=== PATIENT | male | born 1955 | race Hispanic/Latino ===

== ENCOUNTER 2018-03-31 18:03 | Observation (INO) | payer BC ==
[~2018-03-31] VITALS: Ht 170.2 cm; Wt 78.5 kg
[~2018-03-31 18:03] MED LIST: AVODART0.5 MG PO; OMEPRAZOLE40 MG PO; TAMSULOSIN HCL0.4 MG PO
--- OUTSIDE RECORDS SUMMARY | 2018-03-31 18:06 | XMS REPORT ---
Author Author [facility] Address Unknown Phone Unavailable Care Team Providers Care Inventory Control Specialist Name Role Phone Unavailable Unavailable Payers Payer Name Policy Type Policy Number Effective Date Expiration Date Problems This patient has no known problems. Allergies, Adverse Reactions, Alerts Allergy Name Allergy Type Status Severity Reaction(s) Onset Date Inactive Date Treating Clinician Comments No Known Allergies DA Active U 2017-08-16 00:00:00 Medications This patient has no known medications.
--- OUTSIDE RECORDS SUMMARY | 2018-03-31 18:06 | XMS REPORT | Encounter Summary ---
Author Organization Unknown Address [address] [place] [id number] Phone [phone] Care Team Providers Care Help Desk Technician Name Role Phone Dr. Vicki Wong 3 [phone] Vish Silva MD 107 [phone] Chantel Christina MD 111 [phone] Liborio Rutherford MD 115 [phone] Reason for Visit Pure hypercholesterolemia Instructions 1. Pure hypercholesterolemia high cholesterol: care instructions 2. Immunization 3. Body mass index 25-29 - overweight learning about healthy weight 4. Arthropathy of lumbar facet joint Discussion Note: None recorded. Plan of Care Reminders Provider Appointments Est Patient 10/02/2018 8:00AM Casey Quiros MD Lab None recorded. Referral None recorded. Procedures None recorded. Surgeries None recorded. Imaging None recorded. Medications Name Start Date aspirin 81 mg tablet,delayed release QD clopidogrel 75 mg tablet Take 1 tablet every day by oral route for 90 days. dutasteride 0.5 mg capsule Take 1 capsule every day by oral route. omeprazole 40 mg capsule,delayed release Take 1 capsule every day by oral route. rosuvastatin 40 mg tablet Take 1 tablet every day by oral route as directed for 30 days. tamsulosin 0.4 mg capsule Take 1 capsule every day by oral route. Medications Administered None recorded. Vitals Height Weight BMI Blood Pressure 5 ft 7 in 178.8 lbs 28 kg/m2 102/70 mm[Hg] Lab Results None recorded. Allergies Code Code System Name Reaction Severity Status Onset NKDA Problems Name Status Onset Date Source Pure Hypercholesterolemia Active 11/13/2015 Body Mass Index 25-29 - Overweight Active 11/13/2015 High Hemoglobin a1C Level Active 11/13/2015 Mixed Hyperlipidemia Active 01/29/2016 Bilateral Cataracts Active 03/30/2016 History of Coronary Artery Bypass Grafting Active 09/23/2017 Procedures Date Name Performed by 02/28/2017 Cardiac Surgery Information not available 02/28/2015 Eye Surgery Information not available 08/06/2014 Colonoscopy Information not available Cataract Surgery Complex Information not available Skin Splt Grft Trnk/arm/leg Information not available Appendectomy Information not available Vaccine List None recorded. Social History Smoking Status Never Smoker Past Encounters 03/31/2018 Pure Hypercholesterolemia; Immunization; Body Mass Index 25-29 - Overweight; Arthropathy of Lumbar Facet Joint Casey Quiros MD: [address] [place] [address], Ph. History of Present Illness Note:F/u on HLD. Rosuvastatin was increased to 40 mgs daily 3 months ago. Compliant with meds. Non compliant with diet or exercise. No side effects with meds. No new concerns. Review of Systems Comprehensive General Adult ROS Reported By: Patient Constitutional: Constitutional: no fever Eyes: Eyes: no vision change Cardiovascular: Cardiovascular: no chest pain, no palpitations, no lightheadedness Respiratory: Respiratory: no cough, no wheezing, no shortness of breath Gastrointestinal: Gastrointestinal: no abdominal pain, no nausea, no vomiting, no constipation, no diarrhea Musculoskeletal: Musculoskeletal: no muscle aches, no swelling in the extremities Neurologic: Neurologic: no loss of consciousness, no headaches Psychiatric: Psych: no depression, no alcohol abuse, no anxiety, no suicidal thoughts Physical Exam General Adult Exam (male) Reported By: Patient Constitutional: General Appearance: healthy-appearing. Level of Distress: NAD. Ambulation: ambulating normally Psychiatric: Insight: good judgement. Mental Status: active and alert, normal mood, normal affect. Orientation: to time, to place, to person. Memory: recent memory normal, remote memory normal Eyes: Lids and Conjunctivae: non-injected, no discharge Neck: Neck: supple, trachea midline Lungs: Auscultation: breath sounds normal Cardiovascular: Heart Auscultation: RRR, normal S1, normal S2, no murmurs Abdomen: Inspection and Palpation: soft, non-distended, no tenderness, no guarding Musculoskeletal:: Motor Strength and Tone: normal, normal tone. Joints, Bones, and Muscles: normal movement of all extremities. Extremities: no edema Neurologic: Gait and Station: normal gait
[2018-03-31 18:47] LABS: BASOPHILS # (AUTO) 0.1 (0.0-0.1); BASOPHILS % 0.8 % (0.0-1.0); EOSINOPHILS # (AUTO) 0.2 (0.0-0.4); EOSINOPHILS % 2.9 % (0.0-6.0); HEMATOCRIT 41.5 % (38.2-49.6); HEMOGLOBIN 13.6 g/dL (14.0-18.0); LYMPHOCYTES # (AUTO) 2.3 (1.0-3.2); LYMPHOCYTES % 35.8 % (18.0-39.1); MEAN CORPUSCULAR HEMOGLOBIN 26.4 pg (28-32); MEAN CORPUSCULAR HGB CONC 32.8 g/dL (31-35); MEAN CORPUSCULAR VOLUME 80.6 fL (81-99); MONOCYTES # (AUTO) 0.8 (0.2-0.8); MONOCYTES % 12.3 % (4.4-11.3); NEUTROPHILS # (AUTO) 3.1 (2.1-6.9); PLATELET COUNT 248 x10e3/uL (140-360); RED BLOOD COUNT 5.15 x10e6/uL (4.3-5.7); RED CELL DISTRIBUTION WIDTH 13.4 % (11.7-14.4)
[2018-03-31 19:01] LABS: INR 0.91; PROTHROMBIN TIME 13.1 seconds (11.9-14.5)
--- NOTE | 2018-03-31 19:04 | Diagnostic Imaging Report ---
EXAM: XR CHEST 1 VIEW DATE: 03/31/2018 6:48 PM INDICATION: Lightheaded COMPARISON: None FINDINGS: Lines and Tubes: None Heart and Mediastinum: Upper limits of normal. Sternotomy wires. Lungs and Pleura: Minimal opacities in the lung bases statistically represent atelectasis, however, infectious process could have a similar appearance. Bones and Soft Tissues: No acute findings. IMPRESSION: 1. No acute cardiopulmonary findings. Signed by: Dr. Juan A Kumar MD on 03/31/2018 7:00 PM
[2018-03-31 19:11] LABS: ALANINE AMINOTRANSFERASE 11 IU/L (0-55); ALBUMIN/GLOBULIN RATIO 1.3 (0.8-2.0); ALKALINE PHOSPHATASE 86 IU/L (40-150); ANION GAP 14.8 mmol/L (8-16); BLOOD UREA NITROGEN 22 mg/dL (7-26); BUN/CREATININE RATIO 17 (6-25); CALCIUM 9.4 mg/dL (8.4-10.2); CARBON DIOXIDE 24 mmol/L (22-29); CHLORIDE 104 mmol/L (98-107); CREATINE KINASE 121 IU/L (30-200); CREATININE, SERUM 1.33 mg/dL (0.72-1.25); EST GLOMERULAR FILTRATION RATE 54 ML/MIN (60-); GLUCOSE 98 mg/dL (74-118); POTASSIUM 3.8 mmol/L (3.5-5.1); SODIUM 139 mmol/L (136-145)
--- NOTE | 2018-03-31 19:57 | Diagnostic Imaging Report ---
EXAMINATION: Head CT without contrast. HISTORY:Dizziness and sweating. COMPARISON:Report of CT brain from 01/27/2016, images are not available for comparison at the time of interpretation. TECHNIQUE: Multidetector axial images were obtained from the foramen magnum to the vertex without contrast. The images were reconstructed using brain and bone algorithms. Thin section brain images were reformatted into coronal and sagittal planes. Dose modulation, iterative reconstruction, and/or weight based adjustment of the mA/kV was utilized to reduce the radiation dose to as low as reasonably achievable. Intravenous contrast: None IMAGE QUALITY: Acceptable. FINDINGS: Skull/scalp: No lytic or blastic. lesions. No surgical changes. Parenchyma: Focal hypodensity in the inferior aspect of left lentiform nucleus represents old lacunar infarct versus prominent perivascular space. No acute hemorrhage, mass or acute major vascular territorial infarct. Arteries: No density suggestive of thrombosis. Dural sinuses: No abnormal density suggestive of thrombosis. Ventricles: No hydrocephalus or displacement. Extra-axial spaces: No abnormal density. Brain volume: Normal for age. Craniocervical junction: No mass, Chiari malformation, or basilar invagination. Sella: No mass. Paranasal/mastoid sinuses: Imaged portions unremarkable. IMPRESSION: 1. No acute intracranial abnormality, particularly no acute hemorrhage, mass or acute major vascular territorial infarct. 2. Old lacunar infarct vs prominent perivascular space in left putamen. Signed by: Dr. Faith Grady M.D. on 03/31/2018 7:54 PM
[2018-03-31] MEDS ORDERED: SODIUM CHLORIDE FLUSH 10 ML SYR INJ PRN (20:15)
[2018-03-31] MEDS ORDERED: NITROGLYCERIN 0.4 MG SUBL SL PRN (20:15)
[2018-03-31] MEDS ORDERED: ONDANSETRON HCL INJ 2MG/ML 2ML 2 MG/ML VIAL IV PRN (20:15)
[2018-03-31] MEDS ORDERED: ASPIRIN 81 MG CHEW TAB PO ONE (20:15)
[2018-03-31 21:30] VITALS: BP 137/76
[2018-03-31 22:00] VITALS: BP 137/76
--- NOTE | 2018-03-31 22:08 | NUR ---
PATIENT RECEIVED FROM EMERGENCY DEPARTMENT PER STRETCHER AT 2122; HE'S ALERT AND ORIENTED X4, NO RESPIRATORY DISTRESS OBSERVED AND HE DENIES CHEST PAIN AND DIZZINESS. SKIN INTEGRITY INTACT, SMALL DARK AREAS OBSERVED TO THE STERNUM, PATIENT STATED HE HAD CABG JULY OF 2017 AT [facility]. HE'S ORIENTED TO SURROUNDINGS, CALL LIGHT WITHIN EASY REACH, INSTRUCTED TO CALL FOR ASSISTANCE UPON GETTING OUT OF THE BED.
[2018-03-31] MEDS: FAMOTIDINE 20 MG TAB PO SCH (22:40)
[2018-04-01 01:00] VITALS: BP 114/68
--- NOTE | 2018-04-01 02:50 | NUR ---
PATIENT IS ASLEEP, HE'S EASY TO AROUSE. NO RESPIRATORY DISTRESS OBSERVED, HE DENIES CHEST PAIN. CALL LIGHT WITHIN EASY REACH, BED ALARM ON, INSTRUCTED TO CALL FOR ASSISTANCE NEEDED.
[2018-04-01 04:25] VITALS: BP 121/75
[2018-04-01 06:10] LABS: CREATINE KINASE 111 IU/L (30-200)
--- NOTE | 2018-04-01 06:10 | NUR ---
PATIENT ASSISTED TO THE RESTROOM, CONDITION REMAINS STABLE AND HE DENIES CHEST PAIN AND DIZZINESS. HE'S NOW BACK IN BED WITHOUT ACUTE DISTRESS, CALL LIGHT WITHIN EASY REACH.
[2018-04-01 06:26] LABS: CHOL/HDL RATIO 2.9 (3.9-4.7)
--- NOTE | 2018-04-01 07:35 | NUR ---
patient resting in bed, AAOx3, Denies any chest PAIN or SOB this time, not in any distress, call light in reach, encouraged to call for any assistance
[2018-04-01 07:47] VITALS: BP 127/73
[2018-04-01] MEDS: FAMOTIDINE 20 MG TAB PO SCH (08:42)
[2018-04-01] MEDS ORDERED: ASPIRIN 81 MG ENTERIC COATED PO SCH (09:00)
[2018-04-01 11:03] VITALS: BP 127/73
[2018-04-01 11:55] VITALS: BP 129/75
[2018-04-01 12:24] LABS: CREATINE KINASE 128 IU/L (30-200)
[2018-04-01] MEDS ORDERED: CRESTOR10 MG PO ×2 (13:54→14:40)
[2018-04-01] MEDS ORDERED: PLAVIX75 MG PO ×2 (13:54→14:39)
--- NOTE | 2018-04-01 14:10 | NUR ---
Dr Lopez had rounds , said patient can go home.
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
--- NOTE | 2018-04-01 15:19 | NUR ---
patient discharged home. Alert with no distress, denies any chest pain, no distress noted, IV canula removed with tip intact, Tele box returned, at bed side, transported via [facility] to [facility]
--- NOTE | 2018-04-02 20:27 | Discharge Summary ---
DISCHARGE DIAGNOSES 1. Coronary artery disease with unstable angina. 2. Status post coronary artery bypass surgery. 3. Near syncope. 4. Dizziness. 5. Hypercholesterolemia. DISCHARGE INSTRUCTIONS: Continuation of home medication. 1. Aspirin 81 mg a day. 2. Plavix 75 mg a day. 3. Crestor 20 mg a day. 4. Flomax 0.4 mg a day. 5. Stop dutasteride 0.5 mg a day. 6. Patient has not given beta taylor because of bradycardia. HISTORY AND PHYSICAL: Please refer to the dictated note. COURSE IN THE HOSPITAL: Patient came to this institution from the emergency room. He was ruled out for myocardial infarction. Because of his presentation, his symptoms coronary artery disease. He is offered a cardiac catheterization. However, patient said "I live nearby the hospital, I preferred to go home and I will schedule my procedure as an outpatient." Patient advised in case of any more symptoms present again to the emergency room. OPAL BENNETT MD Job#: [id number] JASKARAN
== END 2018-04-01 15:04 | disposition home or self-care (01) ==
LOC: ER 18:03 → ERHOLD 20:22 → INTOOBSV 20:22 → IMCU 21:28
PROVIDERS: ADMIT Internal Medicine Cardiovascular Disease; ATTEND Internal Medicine Cardiovascular Disease
DX: I25.110 Atherosclerotic heart disease of native coronary artery with unstable angina pectoris (principal); R55 Syncope and collapse; E78.00 Pure hypercholesterolemia, unspecified; Z95.1 Presence of aortocoronary bypass graft; Z83.3 Family history of diabetes mellitus; Z82.49 Family history of ischemic heart disease and other diseases of the circulatory system; Z79.82 Long term (current) use of aspirin
CPT/HCPCS: 36415 ×2; 70450; 71045; 80053; 80061; 82550 ×2; 82553 ×2; 84484 ×2; 85025; 85610; 85730; 93005; 99284; G0378 ×2

== ENCOUNTER 2018-07-11 14:46 | Observation (INO) | payer BC ==
[~2018-07-11] VITALS: Ht 170.2 cm; Wt 82.3 kg
[~2018-07-11 14:46] MED LIST changes: +CRESTOR10 MG PO; +PLAVIX75 MG PO
[2018-07-11 16:09] LABS: BASOPHILS % 0.3 % (0.0-1.0); EOSINOPHILS # (AUTO) 0.1 (0.0-0.4); EOSINOPHILS % 0.8 % (0.0-6.0); HEMATOCRIT 43.2 % (38.2-49.6); HEMOGLOBIN 13.9 g/dL (14.0-18.0); LYMPHOCYTES # (AUTO) 1.3 (1.0-3.2); LYMPHOCYTES % 13.2 % (18.0-39.1); MEAN CORPUSCULAR HEMOGLOBIN 26.7 pg (28-32); MEAN CORPUSCULAR HGB CONC 32.2 g/dL (31-35); MEAN CORPUSCULAR VOLUME 83.1 fL (81-99); MONOCYTES # (AUTO) 0.9 (0.2-0.8); MONOCYTES % 9.9 % (4.4-11.3); NEUTROPHILS # (AUTO) 7.2 (2.1-6.9); NEUTROPHILS % 75.4 % (38.7-80.0); PLATELET COUNT 235 x10e3/uL (140-360); RED CELL DISTRIBUTION WIDTH 13.2 % (11.7-14.4)
--- NOTE | 2018-07-11 16:12 | Diagnostic Imaging Report ---
EXAM: CHEST SINGLE (NOT PORTABLE) DATE: 07/11/2018 3:26 PM INDICATION: ^CHEST PAIN ^Y COMPARISON: Chest x-ray, 03/31/2018 FINDINGS: Lines and tubes: None The heart is upper limits of normal in size, stable from last exam. Wire sternotomy sutures are again noted. No focal pulmonary opacity, pleural effusion or pneumothorax. Upper abdomen unremarkable. No acute bony abnormality. IMPRESSION: No evidence for acute disease. Signed by: Dr. Gerber Carter M.D. on 07/11/2018 4:08 PM
[2018-07-11] MEDS ORDERED: ASPIRIN 81 MG CHEW TAB PO ONE (16:15)
[2018-07-11 16:16] LABS: BILIRUBIN,URINE NEGATIVE (NEGATIVE); CLARITY,URINE SL CLOUDY (CLEAR); COLOR,URINE YELLOW (YELLOW); KETONES,URINE NEGATIVE (NEGATIVE); LEUKOCYTE ESTERASE ,URINE NEGATIVE (NEGATIVE); NITRITE,URINE NEGATIVE (NEGATIVE); PROTEIN,URINE DIPSTICK NEGATIVE (NEGATIVE); URINE UROBILINOGEN 0.2 mg/dL (0.2 - 1)
[2018-07-11] MEDS ORDERED: ASPIRIN 81 MG CHEW TAB ONE (16:18)
[2018-07-11 16:20] LABS: INR 0.92; PROTHROMBIN TIME 12.8 seconds (11.9-14.5)
[2018-07-11 16:22] LABS: PARTIAL THROMBOPLASTIN TIME 27.1 seconds (23.8-35.5)
[2018-07-11 16:27] LABS: MUCUS,URINE RARE (RARE)
[2018-07-11 16:33] LABS: ALANINE AMINOTRANSFERASE 14 IU/L (0-55); ALBUMIN/GLOBULIN RATIO 1.2 (0.8-2.0); ALKALINE PHOSPHATASE 92 IU/L (40-150); ANION GAP 12.7 mmol/L (8-16); BLOOD UREA NITROGEN 17 mg/dL (7-26); BUN/CREATININE RATIO 16 (6-25); CALCIUM 9.6 mg/dL (8.4-10.2); CARBON DIOXIDE 24 mmol/L (22-29); CHLORIDE 104 mmol/L (98-107); CREATINE KINASE 102 IU/L (30-200); CREATININE, SERUM 1.09 mg/dL (0.72-1.25); EST GLOMERULAR FILTRATION RATE > 60 ML/MIN (60-); GLUCOSE 77 mg/dL (74-118); POTASSIUM 3.7 mmol/L (3.5-5.1); SODIUM 137 mmol/L (136-145)
--- NOTE | 2018-07-11 19:00 | NUR ---
received report from ny boswell
[2018-07-11] MEDS ORDERED: NITROGLYCERIN 0.4 MG SUBL SL PRN (19:45)
[2018-07-11] MEDS ORDERED: MORPHINE SULFATE 2 MG/ML SYR 1ML IV PRN (19:45)
[2018-07-11] MEDS ORDERED: ONDANSETRON HCL INJ 2MG/ML 2ML 2 MG/ML VIAL IV PRN (19:45)
[2018-07-11] MEDS ORDERED: MORPHINE SULFATE INJ 4 MG/ML INJ 1ML IV PRN (20:00)
[2018-07-11] MEDS: FAMOTIDINE 20 MG/2 ML VIAL IV SCH (20:40)
[2018-07-11] MEDS ORDERED: ASPIR 8181 MG PO (22:29)
[2018-07-11] MEDS ORDERED: AVODART0.5 MG PO (22:29)
[2018-07-11 22:40] VITALS: BP 144/75
--- NOTE | 2018-07-11 22:40 | NUR ---
Patient arrived to unit via stretcher from ER. A&Ox3. Patient ambulated from stretcher to bed. Oriented to call light and environment. Instructed to call for assistance or on the onset of pain or SOB. Call light within reach.
[2018-07-11 23:03] VITALS: BP 144/75
[2018-07-12] VITALS (8 sets, daily range): BP systolic 117–132; BP diastolic 62–78
[2018-07-12 00:19] LABS: CREATINE KINASE MB 1.3 ng/mL (0-5.0)
[2018-07-12 05:59] LABS: BASOPHILS # (AUTO) 0.1 (0.0-0.1); BASOPHILS % 0.8 % (0.0-1.0); EOSINOPHILS # (AUTO) 0.2 (0.0-0.4); HEMOGLOBIN 13.5 g/dL (14.0-18.0); LYMPHOCYTES % 32.2 % (18.0-39.1); MEAN CORPUSCULAR HEMOGLOBIN 26.8 pg (28-32); MEAN CORPUSCULAR HGB CONC 32.9 g/dL (31-35); MEAN CORPUSCULAR VOLUME 81.5 fL (81-99); MONOCYTES # (AUTO) 0.7 (0.2-0.8); MONOCYTES % 10.7 % (4.4-11.3); NEUTROPHILS # (AUTO) 3.4 (2.1-6.9); PLATELET COUNT 223 x10e3/uL (140-360); RED BLOOD COUNT 5.03 x10e6/uL (4.3-5.7); RED CELL DISTRIBUTION WIDTH 13.2 % (11.7-14.4)
[2018-07-12 06:40] LABS: CREATINE KINASE 93 IU/L (30-200)
[2018-07-12 06:42] LABS: ALANINE AMINOTRANSFERASE 14 IU/L (0-55); ALBUMIN 3.4 g/dL (3.5-5.0); ALKALINE PHOSPHATASE 79 IU/L (40-150); ANION GAP 12.2 mmol/L (8-16); BLOOD UREA NITROGEN 15 mg/dL (7-26); BUN/CREATININE RATIO 16 (6-25); CALCIUM 9.1 mg/dL (8.4-10.2); CARBON DIOXIDE 23 mmol/L (22-29); CHLORIDE 109 mmol/L (98-107); CHOLESTEROL 149 MD/DL (0-199); CREATININE, SERUM 0.95 mg/dL (0.72-1.25); EST GLOMERULAR FILTRATION RATE > 60 ML/MIN (60-); GLUCOSE 104 mg/dL (74-118); HDL CHOLESTEROL 49 MG/DL (40-60); LDL CHOLESTEROL 81 MG/DL (60-130); POTASSIUM 4.2 mmol/L (3.5-5.1); SODIUM 140 mmol/L (136-145); TRIGLYCERIDES 97 MG/DL (0-149)
--- NOTE | 2018-07-12 06:42 | NUR ---
Spoke with Dr Lopez: notified of consult for chest pain. Will see patient.
[2018-07-12] MEDS ORDERED: ASPIRIN 81 MG ENTERIC COATED PO SCH (09:00)
[2018-07-12] MEDS: FAMOTIDINE 20 MG/2 ML VIAL IV SCH ×2 (09:06→20:57)
[2018-07-12] MEDS ORDERED: LIDOCAINE 1% W/EPINEPHRINE 20 ML VIAL ONE (13:16)
[2018-07-12] MEDS ORDERED: CEFAZOLIN SOD 1 GM VIAL ONE (13:17)
[2018-07-12] MEDS ORDERED: SODIUM CHLORIDE 0.9% 50ML 50 ML ONE (13:17)
--- NOTE | 2018-07-12 13:47 | NUR ---
1320-consent for Implanted Loop Recorder obtained by labor crew supervisor staff Ancef 1gram infusing as ordered by Dr. Candis Lopez 1335-Dr. Candis Lopez arrived 1336-Lidocaine with epi to sight by Dr. Candis Lopez 1340-Loop recorder inserted 1342-dressing applied
[2018-07-12] MEDS ORDERED: CEFAZOLIN SOD 1 GM/NS 50ML 50 ML IV ONE (14:00)
[2018-07-12 15:28] LABS: CREATINE KINASE MB 1.1 ng/mL (0-5.0)
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
--- NOTE | 2018-07-12 19:38 | NUR ---
Got report from previous nurse. call light within reach. Patient in bed. A&O x 3. No pain or distress.
[2018-07-12] MEDS ORDERED: ATORVASTATIN 20 MG TAB PO SCH (21:00)
[2018-07-12] MEDS ORDERED: CRESTOR 10MG PO SCH ×2 (21:00)
[2018-07-12] MEDS: MINOCYCLINE HCL 50 MG CAP PO SCH (21:05)
--- NOTE | 2018-07-12 21:25 | Operative Report ---
DATE OF PROCEDURE: 07/12/2018 SURGEON: Deejay Lopez MD PROCEDURE PERFORMED: Implantable loop recorder implant. INDICATION FOR PROCEDURE: Recurrent syncopal and near syncopal spells of unclear etiology, this is for monitoring for any significant arrhythmias. TECHNICAL DETAIL: After risks, benefits, pros and cons to this procedure were explained, the patient agreed to proceed. The patient was prepped and draped in the usual sterile fashion in the 4th to 5th left parasternal intercostal space. A 1% lidocaine solution with epinephrine was given through the skin and utilizing a [employer] Confirm Rx device, the blade was utilized to make a stab incision. Next, we utilized the injection system to inject the loop recorder in the left parasternal space. The direction of the injection was a 45-degree angle toward apex. Finally, this manual compression was applied achieving hemostasis and the edges of the wound were reapproximated with Dermabond crystalline solution. COMPLICATIONS: None. ESTIMATED BLOOD LOSS: Minimal. PROCEDURE SUMMARY: Successful implantation of a confirmed Rx [employer] implantable loop recorder. GTIN is [id number], reference number is [id number], SN is [id number]. PLAN/RECOMMENDATIONS: 1. The patient will receive periprocedural antibiotics with IV Ancef. 2. We will continue to monitor him for bradyarrhythmias with a loop recorder. Deejay Lopez MD AMJ/MODL /[id number]
--- NOTE | 2018-07-12 21:46 | History and Physical ---
HISTORY OF PRESENT ILLNESS: The patient is a 63-year-old male with past medical history positive for hypertension, hyperlipidemia, coronary artery disease, status post CABG, came here with chest pain and shortness of breath, symptoms have resolved. EKG showed no evidence of any ST-segment elevation or depression. Cardiac enzymes x3 are completely normal. Dr. Lopez saw the patient from a cardiac point of view, he implanted the loop recorder. REVIEW OF SYSTEMS: CARDIOVASCULAR: He has had chest pain, which is resolved. GASTROINTESTINAL: No nausea or vomiting. No diarrhea. GENITOURINARY: No frequency. No dysuria. RESPIRATORY: No shortness of breath. ALLERGIES: HE IS NOT ALLERGIC TO ANY MEDICATION. SOCIAL HISTORY: He does not smoke, he does not drink. PAST MEDICAL HISTORY: 1. Coronary artery disease, status post CABG 1 year ago. 2. Hypertension. 3. Hyperlipidemia. 4. Osteoarthritis. PHYSICAL EXAMINATION: VITAL SIGNS: Blood pressure 132/78, temperature 36.3, heart rate 50 per minute, respiratory rate is 15 per minute, oxygen saturation 97%. HEART: Showed regular rhythm. Normal S1, S2 sound. LUNGS: Clear bilaterally. ABDOMEN: Soft, nontender. No distention. No visceromegaly. EXTREMITIES: Show no evidence of cyanosis or trauma. LABORATORY STUDIES: BMP shows sodium 140, potassium 4.2, chloride 109, CO2 of 23, BUN 15, creatinine 0.95, glucose 104. On the CBC, white blood count 6.33, hemoglobin 13.5, hematocrit 41.0, platelet count 283,000, PT 12.8, INR 0.82, PTT 27.1. AST 16, ALT 14, total bilirubin 0.3, alkaline phosphatase 79. EKG showed normal sinus rhythm. No specific changes. T-wave inversions in I, aVL, V1 and V2, heart rate 50 per minute. IMPRESSION: 1. Coronary artery disease, unstable angina. 2. Hyperlipidemia. 3. Hypertension. 4. Gastroesophageal reflux disease. 5. Osteoarthritis. PLAN OF TREATMENT: Continue aspirin 81 mg daily, nitroglycerin 0.4 mg q.5 minutes p.r.n. for chest pain, Pepcid 20 mg twice a day, morphine 2 mg IV q.3 hours as needed. Resume home medications. Dr. Lopez had placed an implantable loop recorder and we are going to monitor the patient overnight, and then the patient may be able to go home tomorrow. The patient will continue with the aspirin 81 mg daily, with Avodart 0.5 mg daily, minocycline 100 mg twice a day, morphine 2 mg IV q.3 hours as needed, nitroglycerin as needed, Protonix 40 mg daily, Flomax 0.4 mg daily. Apparently, the patient was taking Crestor, we are going to put him back on Crestor. MD TY Loya/ANGELLA /[id number]
[2018-07-13 00:22] VITALS: BP 130/83
[2018-07-13 05:11] VITALS: BP 136/84
--- NOTE | 2018-07-13 07:18 | NUR ---
GAVE REPORT TO ONCOMING NURSE. CALL LIGHT WITHIN REACH. PATIENT IN BED. PATIENT IN NO PAIN OR DISTRESS.
[2018-07-13 07:42] VITALS: BP 130/84
[2018-07-13] MEDS ORDERED: SIMVASTATIN 40 MG TAB PO SCH (09:00)
[2018-07-13] MEDS ORDERED: TAMSULOSIN HCL 0.4 MG CAP PO SCH (09:00)
[2018-07-13] MEDS ORDERED: ASPIRIN 81 MG CHEW TAB PO SCH (09:00)
[2018-07-13] MEDS ORDERED: PANTOPRAZOLE SOD 40 MG TABEC PO SCH (09:00)
[2018-07-13] MEDS ORDERED: DUTASTERIDE 0.5 MG CAP PO SCH (09:00)
[2018-07-13] MEDS ORDERED: ONDANSETRON HCL 4 MG ORAL DISINTEGRATING TAB PO PRN (09:45)
[2018-07-13] MEDS: FAMOTIDINE 20 MG/2 ML VIAL IV SCH (09:59)
[2018-07-13] MEDS: MINOCYCLINE HCL 50 MG CAP PO SCH (09:59)
[2018-07-13 10:56] VITALS: BP 130/84
[2018-07-13 10:57] VITALS: BP 130/84
[2018-07-13 11:25] VITALS: BP 125/83
--- NOTE | 2018-07-13 11:44 | Discharge Summary ---
HOSPITAL COURSE: The patient is a 63-year-old male, who has a past medical history positive for coronary artery disease status post CABG, hyperlipidemia, hypertension, gastroesophageal reflux disease, and arthritis, who came here with chest pain. EKG did not show any evidence of any ST-segment elevation or depression. Troponins x4 are completely negative. A loop recorder was placed by Dr. Lopez; if that is normal, the patient might be able to go home today. The patient is chest pain free. PHYSICAL EXAMINATION: HEART: Showed regular rhythm. Normal S1, S2 sounds. LUNGS: Clear bilaterally. ABDOMEN: Soft. EXTREMITIES: Show no evidence of cyanosis, edema, or trauma. VITAL SIGNS: Blood pressure 130/84, temperature 98.6, heart rate 50 per minute, respiratory rate is 20 per minute, and oxygen saturation 96%. LABORATORY DATA: BMP; sodium 140, potassium 4.2, chloride 109, CO2 of 23, BUN 15, creatinine 0.85, glucose 104. CBC; white blood count 6.33, hemoglobin 13.5, hematocrit 41.0, platelet count 283,000. PT 12.8, INR 0.82, PTT 27.1. AST 16, ALT 14, total bilirubin 0.3, alkaline phosphatase 79. FINAL IMPRESSION: 1. Episode of chest pain. 2. Coronary artery disease, status post coronary artery bypass graft. 3. Hyperlipidemia. 4. Hypertension. 5. Gastroesophageal reflux disease. 6. Osteoarthritis. PLAN OF TREATMENT: He will continue nitroglycerin 0.5 mg q.5 minutes p.r.n. for chest pain, if more than 3 tablets a day, he has to come to the emergency room. He is taking minocycline at 100 mg twice a day for seven days, Flomax 0.4 mg daily, aspirin 81 mg daily, Crestor 10 mg daily, dutasteride 0.5 mg daily, Protonix 40 mg daily. Discharge if okay with Dr. Lopez today. Follow up with me and Dr. Lopez in a week. MD TY Loya/ANGELLA /[id number]
[2018-07-13] MEDS ORDERED: MINOCYCLINE HCL50 MG PO (12:22)
[2018-07-13] MEDS ORDERED: FAMOTIDINE 20 MG TAB PO SCH (16:30)
== END 2018-07-13 12:35 | disposition home or self-care (01) ==
LOC: ER 14:46 → ERHOLD 19:53 → INTOOBSV 19:53 → IMCU 22:27
PROVIDERS: ADMIT Internal Medicine; ATTEND Internal Medicine
DX: R07.2 Precordial pain (principal); I25.110 Atherosclerotic heart disease of native coronary artery with unstable angina pectoris; R55 Syncope and collapse; I25.10 Atherosclerotic heart disease of native coronary artery without angina pectoris; E78.5 Hyperlipidemia, unspecified; K21.9 Gastro-esophageal reflux disease without esophagitis; I12.9 Hypertensive chronic kidney disease with stage 1 through stage 4 chronic kidney disease, or unspecified chronic kidney disease; N18.9 Chronic kidney disease, unspecified; M19.90 Unspecified osteoarthritis, unspecified site; Z95.1 Presence of aortocoronary bypass graft; Z87.891 Personal history of nicotine dependence; Z82.49 Family history of ischemic heart disease and other diseases of the circulatory system
CPT/HCPCS: 33285; C1764; 36415; 71045; 80053; 80061; 81001; 82550; 82553; 82948; 83690; 83880; 84484; 85025; 85610; 85730; 93005; 99284; G0378; J0690

== ENCOUNTER → 2018-11-10 | Outpatient (CLI) | payer BC ==
[~2018-11-10] MED LIST changes: +ASPIR 8181 MG PO; +MINOCYCLINE HCL50 MG PO
--- NOTE | 2018-11-10 14:26 | Diagnostic Imaging Report ---
Renal ultrasound Clinical History: Microscopic hematuria Discussion: Sonographic evaluation of the kidneys is performed. The right kidney has been removed. The left kidney has normal size and cortical echogenicity. The left kidney measures 12.9 cm in length. There is no focal renal mass, hydronephrosis, or shadowing renal calculus. No perinephric fluid collection is seen. Survey images of the bladder demonstrate no abnormality. Impression: 1. Status post right nephrectomy. Otherwise, unremarkable renal ultrasound. Signed by: Dr. Vish Magaña MD on 11/10/2018 2:23 PM
--- NOTE | 2018-11-10 14:35 | Diagnostic Imaging Report ---
Exam: KUB Clinical history: Microscopic hematuria Findings: There is no evidence of radiopaque stones along the course of bilateral renal collecting systems. There is nonobstructive bowel gas pattern. The regional osseous structures are unremarkable. Impression: 1. Unremarkable KUB. Signed by: Dr. Vish Magaña MD on 11/10/2018 2:32 PM
== END ==
LOC: US 12:39
PROVIDERS: ATTEND Urology
DX: R80.9 Proteinuria, unspecified (principal); R31.21 Asymptomatic microscopic hematuria
CPT/HCPCS: 74018; 76770

== ENCOUNTER → 2020-01-15 | Outpatient (CLI) | payer BC | LOC: US 07:40 | PROVIDERS: ATTEND Urology | DX: R31.21 Asymptomatic microscopic hematuria (principal) | CPT/HCPCS: 74018; 76770 ==

== ENCOUNTER → 2020-04-18 | Day surgery (SDC) | payer BC ==
[2020-04-17 12:13] LABS: BASOPHILS # (AUTO) 0.1 (0.0-0.1); BASOPHILS % 0.9 % (0.0-1.0); EOSINOPHILS # (AUTO) 0.2 (0.0-0.4); EOSINOPHILS % 3.6 % (0.0-6.0); HEMATOCRIT 39.9 % (38.2-49.6); HEMOGLOBIN 12.2 g/dL (14.0-18.0); LYMPHOCYTES # (AUTO) 1.9 (1.0-3.2); LYMPHOCYTES % 28.8 % (18.0-39.1); MEAN CORPUSCULAR HEMOGLOBIN 26.9 pg (28-32); MEAN CORPUSCULAR HGB CONC 30.6 g/dL (31-35); MEAN CORPUSCULAR VOLUME 87.9 fL (81-99); MONOCYTES # (AUTO) 0.6 (0.2-0.8); NEUTROPHILS # (AUTO) 3.8 (2.1-6.9); NEUTROPHILS % 57.4 % (38.7-80.0); PLATELET COUNT 208 x10e3/uL (140-360); RED BLOOD COUNT 4.54 x10e6/uL (4.3-5.7)
[2020-04-17 12:30] LABS: ANION GAP 12.8 mmol/L (8-16); CALCIUM 8.7 mg/dL (8.4-10.2); CREATININE, SERUM 1.79 mg/dL (0.72-1.25); POTASSIUM 3.8 mmol/L (3.5-5.1)
[~2020-04-18] MED LIST changes: +AMPICILLIN SOD 1 GM/NS 50ML 100 ML IV ONE; +B&O 60MG R/S 60 MG SUPP PR ONE; +ELIQUIS5 MG PO; +GENTAMICIN 80MG/NS 100 ML 100 ML IV ONE; +IOPAMIDOL 300MG/ML 50ML INFUS..BTL IV ONE; +METOCLOPRAM5 MG/5 ML PO; +METOPROLOL SUCC50 MG PO; +PENICILLIN V P500 MG PO; +POTASSIUM CHLO10 ME1 PO
[2020-04-18 10:35] VITALS: BP 131/81
== END | disposition home or self-care (01) ==
LOC: OR 07:31
PROVIDERS: ATTEND Urology
DX: N40.1 Benign prostatic hyperplasia with lower urinary tract symptoms (principal); N13.8 Other obstructive and reflux uropathy; R39.14 Feeling of incomplete bladder emptying; R35.1 Nocturia; N41.1 Chronic prostatitis; N39.0 Urinary tract infection, site not specified; N28.9 Disorder of kidney and ureter, unspecified; N32.89 Other specified disorders of bladder; N35.911 Unspecified urethral stricture, male, meatal; R97.20 Elevated prostate specific antigen [PSA]; N47.6 Balanoposthitis; N45.3 Epididymo-orchitis; N43.3 Hydrocele, unspecified; I25.810 Atherosclerosis of coronary artery bypass graft(s) without angina pectoris; E78.00 Pure hypercholesterolemia, unspecified; E66.9 Obesity, unspecified; K21.9 Gastro-esophageal reflux disease without esophagitis; Z01.810 Encounter for preprocedural cardiovascular examination; Z01.812 Encounter for preprocedural laboratory examination; Z01.818 Encounter for other preprocedural examination; Z20.822 Contact with and (suspected) exposure to COVID-19; Z95.1 Presence of aortocoronary bypass graft; Z90.5 Acquired absence of kidney
CPT/HCPCS: 52005; C9740; 36415; 71046; 74420; 80048; 82948; 85025; 93005; C1758; J0290; J1580; L8699; U0002

== ENCOUNTER → 2021-04-30 | Outpatient (CLI) | payer BC ==
[~2021-04-30] MED LIST changes: -AMPICILLIN SOD 1 GM/NS 50ML 100 ML IV ONE; -B&O 60MG R/S 60 MG SUPP PR ONE; -GENTAMICIN 80MG/NS 100 ML 100 ML IV ONE; -IOPAMIDOL 300MG/ML 50ML INFUS..BTL IV ONE
== END ==
LOC: US 11:46
PROVIDERS: ATTEND Urology
DX: R31.21 Asymptomatic microscopic hematuria (principal)
CPT/HCPCS: 74018; 76770